=== PATIENT | female | born 1990 | race American Indian/Alaskan Native ===

== ENCOUNTER → 2021-03-15 15:46 | Outpatient (CLI) | payer OTHER, SELFPAY ==
--- NOTE | 2021-03-15 15:51 | DI.US.S_ITS ---
PROCEDURE: US OB >= 14 WEEKS FETUS INDICATIONS: 20 WEEK ANATOMY. OUTSIDE/PRIOR DATING DATA: Last menstrual period (LMP): October 24, 2020. LMP-based estimated date of delivery (JOAQUINA): July 31, 2021. First dating scan (date and location): [facility]; March 15, 2021. Estimated date of delivery (JOAQUINA) from first dating scan: July 28, 2021. TECHNIQUE: Real-time scanning was performed of the fetus, with image documentation and biometric measurements. COMPARISON: None. FINDINGS: General: A single living intrauterine gestation is present. Presentation: Variable. Placenta: Placental position is anterior , without previa. Amniotic fluid index: 15.2 cm, normal range is 5-24 cm. Single deepest vertical pocket is 4.3 cm. heart rate: 144 beats per minute. Maternal cervical canal: 4 cm long. Normal lower limit is 2.5 cm. biometrics: Biparietal diameter: 4.9 cm Head circumference: 18 cm Abdominal circumference: 15.7 cm Femur length: 3.4 cm Composite gestational age from present scan: 20 weeks, 5 days Estimated weight and percentile: 375 g +/-56 g; 72 percentile Anatomic survey: Neuro: Ventricles are non-dilated at less than 10 mm. Cisterna magna is normal at 3-11 mm. Cerebellum is normal in size and morphology. Nuchal skin fold: Normal at less than 6 mm between 14-21 weeks gestational age. Face: Nose and lips, facial profile are normal. Spine: No evidence for spina bifida. Heart: 4-chambered heart is present, with normal ventricular outflow tracts. Echogenic focus versus echogenic chordae tendinae a in the bilateral ventricles. Diaphragm: Diaphragm is intact. Stomach: Left-sided stomach is present. Kidneys: No hydronephrosis. Normal is less than 5 mm in 2nd trimester, less than 7 mm in 3rd trimester. Cord: 3-vessel cord has orthotopic insertion. Bladder: Normal in size. Extremities: All 4 extremities identified. IMPRESSION: Live single intrauterine gestation as detailed above. We strive to produce accurate, complete, and clear reports of imaging services. To assist us in improving patient care, this report was composed using standard report templates and voice recognition software. Therefore, it may contain abnormal punctuation, insertions and/or omissions. Occasional wrong-word or sound-alike substitutions may occur. Though we review the report and make efforts to correct it, we do recommend that the report be read carefully in proper context to recognize any text inaccuracies. Dictated by: Alexei Johnson M.D. on 03/15/2021 at 17:12 Approved by: Alexei Johnson M.D. on 03/15/2021 at 17:17
== END ==
PROVIDERS: Referring Provider Nurse Practitioner Obstetrics & Gynecology; Visit Provider Nurse Practitioner Obstetrics & Gynecology
DX: Z3A.20 20 weeks gestation of pregnancy; Z36.89 Encounter for other specified antenatal screening
CPT/HCPCS: 76811

== ENCOUNTER → 2021-07-09 15:01 | Outpatient (ROUT) | payer OTHER, SELFPAY | PROVIDERS: Visit Provider Nurse Practitioner Obstetrics & Gynecology | DX: Z36.85 Encounter for antenatal screening for Streptococcus B (principal); Z3A.36 36 weeks gestation of pregnancy | CPT/HCPCS: 87081; 87147; 87186 ==

== ENCOUNTER 2021-07-27 03:08 | Inpatient (IN) | payer OTHER, SELFPAY ==
--- NOTE | 2021-07-27 04:12 | PM.OBHP.1 ---
OB HPI Date/Time Date of admission: 07/27/21 Date Patient Seen: 07/27/21 Time Patient Seen: 04:12 History of Present Condition Chief complaint: WATER BROKE : 1 Para: 0 Estimated Date of Delivery: 07/31/21 Estimated Gestational Age (weeks): 39.3 Narrative: Shereen oLaiza is a 30 year old female @ 13zdn3t by LMP and 10wk US who presents for evaluation of PROM. Noticed clear leaking fluid at 0125. Mild cramping started at 0200. Uncomplicated care w/ CNM. Open to active management of PROM and an epidural for labor analgesia. Was previously counseled on GBS positive, clindamycin resistant status with allergies requiring treatment with vancomycin. Partner, Markell, is present and supportive. History of Present care: good care, initiated at week # (10), number of visits (10) and pounds weight gain (23) Dating criteria: LMP confirmed by 1st trimester US Ultrasounds: normal mid trimester US Obstetrical complications: none Medical complications: none Preadmission Labs Blood type: O (+) positive -: Antibody screen: negative, GBS status: positive, HBsAG: negative, HIV: negative and RPR/VDLR: negative -: Chlamydia screen: not detected and Gonorrhea screen: not detected -: Rubella: immune and Varicella: immune HCT: 35.7 HCAB: negative Cell-free DNA: Negative, female 1 hr GTT: 132 Evaluation Evaluation Baseline heart rate: 120 Variability: Moderate (11-25) monitor accelerations: Present Monitor Decelerations: Variable Contraction Frequency (minutes): 6 Uterine Contraction Intensity: Mild Category of Tracing: Reactive Status: Category l Non-invasive Membranes Rupture Test: positive Comments: CE deferred for PROM PFSH Medical History (Updated 07/27/21 @ 04:45 by Siobhan Pitt CNM) Anemia Surgical History (Updated 07/27/21 @ 04:45 by Siobhan Pitt CNM) H/O breast augmentation H/O oral surgery Family History (Updated 07/27/21 @ 04:48 by Siobhan Pitt CNM) Mother Depression Father Cancer Social History (Updated 07/27/21 @ 04:49 by Siobhan Pitt CNM) marital status: unmarried,living together household members: significant other lives independently: Yes caregiver/support person: No education level: master's degree occupational status: employed Meds Home Medications and Allergies Home Medications Medication Instructions Recorded Confirmed Type [id number] 1 mg 1 tab PO 07/27/21 History tablet Review of Systems Review of Systems ROS: Yes All systems reviewed with the patient and are negative except as otherwise documented OB Exam Narrative Exam Narrative: BP 120/86mmHg, HR 55bpm, T 36.4C Temporal Resp Effort & Inspection: normal respiratory effort Auscultation: clear to auscultation bilaterally Cardio Rate: regular rate Rhythm: regular rhythm Presentation: vertex Assessment and Plan Assessment and Plan Assessment and Plan narrative: A: Term [place] PROM x 3 hours without sx of infection GBS prophylaxis indicated Cat II FHR, overall reassuring P: Admit, routine orders w/ Vancomycin for GBS prophylaxis. Counseled on options for active vs. expectant management of PROM and patient elects active management. 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 Encouraged rest while she's able. Reassess in 4-6 hours or sooner, PRN.
[2021-07-27 05:04] LABS: Add Manual Diff / Slide Review NO; Basophils Absolute Auto 100 /uL (0-100); Basophils Percent Auto 0.8 % (0-2); Eosinophils Absolute Auto 100 /uL (0-450); Eosinophils Percent Auto 1.1 % (2-4); Hemoglobin 13.6 g/dL (12.0-16.0); Lymphocytes Absolute Auto 2100 /uL (1100-4500); Lymphocytes Percent Auto 22.3 % (25-40); Mean Corpuscular Hemoglobin 31.6 PG (26-34); Mean Corpuscular Volume 92.8 fL (80-100); Monocytes Absolute Auto 500 /uL (0-900); Monocytes Percent Auto 5.7 % (3-14); Neutrophils Absolute Auto 6500 /uL (1500-7000); Neutrophils Percent Auto 70.1 % (50-75); Platelet Count 187 X10^3/uL (150-400); Red Blood Cell Count 4.31 X10^6/uL (4.0-5.2); Red Cell Distribution Width 13.7 % (11.6-14.8); White Blood Cell Count 9.3 X10^3/uL (4.5-11.0)
[2021-07-27] MEDS: VANCOMYCIN 2,000 MG/400 ML PIGGYBACK 200 MG IV (05:11)
[2021-07-27 05:18] LABS: COVID19 -Nasal RAPID Negative (Negative)
[2021-07-27 06:21] VITALS: BP 120/86
[2021-07-27] MEDS: LACTATED RINGERS 1,000 ML 100 ML IV ×3 (08:38→14:25)
[2021-07-27] MEDS: OXYTOCIN PREMIX 30 UNIT/500 ML PLAST..BAG IV (08:40)
[2021-07-27] MEDS: FENT 2MCG/ML BUPIV 0.125% EPI 200 MCG/100 ML PLAST..BAG 8 MCG EPIDURAL ×2 (11:22→19:17)
--- NOTE | 2021-07-27 12:23 | P.PN_ITS ---
Subjective Subjective Interval history: Date/Time Date Patient Seen: 07/27/21 Time Patient Seen: 12:09 Pain Control Pain control: epidural Comments: Began breathing through contractions around 0900.? Requested epidural at 1040.? now resting comfortably with epidural.? Central Office Operator and partner are present and supportive.? VS: BP 111/65mmHg, HR 58bpm, T 36.4C Temporal.? BP dia of 97/55 reached shortly after epidural placement, improved w/ position change, additional IVFB.? Pelvic Exam Dilation (cm): 3 Effacement (%): 90 station: -1 Amniotic membrane status: Leaking (clear) Contractions Contractions on admission: irregular Monitor mode: External Pitocin rate (mU/min): 0 Contraction frequency (min): 3 Contraction duration (min): 1 Contraction pattern: Regular Status status: Category ll Heart Rate Baseline: 130 Monitor Accelerations: Present Monitor Decelerations: Late Monitor Variability: Moderate Comments: 25 minutes after epidural was placed, 3 coupled contractions and decrease in maternal BP led to recurrent late decelerations.? Pitocin was turned off, maternal position changed and additional IVFB was given and FHR recovered.? FHR now Cat I.? Assessment and Plan Assessment: induction ongoing Plan: continuous present management Comments: Reassess in 4 hours or sooner, PRN.? Exam Vital Signs (past 8 hours): - 07/27/21 06:21 Blood Pressure 120/86 Objective Labs Result Diagrams: 07/27/21 05:00 Labs: Laboratory Results - last 24 hr 07/27/21 07/27/21 07/27/21 05:00 05:00 05:00 WBC 9.3 RBC 4.31 Hgb 13.6 Hct 40.0 MCV 92.8 MCH 31.6 MCHC 34.0 RDW 13.7 Plt Count 187 Neut % (Auto) 70.1 Lymph % (Auto) 22.3 L [place] % (Auto) 5.7 Eos % (Auto) 1.1 L Baso % (Auto) 0.8 Neut # (Auto) 6500 Lymph # (Auto) 2100 [place] # (Auto) 500 Eos # (Auto) 100 Baso # (Auto) 100 SARS-CoV-2 (PCR) Negative Blood Type O Positive Antibody Screen Negative [facility] Medical History (Updated 07/27/21 @ 04:45 by Siobhan Pitt CNM) Anemia Surgical History (Updated 07/27/21 @ 04:45 by Siobhan Pitt CNM) H/O breast augmentation H/O oral surgery Family History (Updated 07/27/21 @ 04:48 by Siobhan Pitt CNM) Mother Depression Father Cancer Social History (Updated 07/27/21 @ 04:49 by Siobhan Pitt CNM) marital status: unmarried,living together household members: significant other lives independently: Yes caregiver/support person: No education level: master's degree occupational status: employed Smoking Status: Never smoker Assessment & Plan Time Spent With Patient Critical Care time: I spent a total of [] minutes of critical care time on this patient's care today; this time is exclusive of procedural time.
--- NOTE | 2021-07-27 15:55 | PM.OBPNLAB ---
Date/Time Date Patient Seen: 07/27/21 Time Patient Seen: 14:45 Pain Control Pain control: epidural Comments: Called by RN for recurrent late decelerations at 1403. RN initiated position changes and turned off pit for decels. FHR variability remained moderate with accelerations. Patient remains comfortable with epidural anesthesia. VS: BP 109/56mmhg, HR 52bpm, T 36.3C Temporal Pelvic Exam Dilation (cm): 3.5 Effacement (%): 90 station: -1 Amniotic membrane status: Leaking (clear) Comments: exam by RN, unchanged Contractions Monitor mode: External Pitocin rate (mU/min): 0 Contraction frequency (min): 4 Contraction duration (min): 2 Contraction pattern: Irregular Status status: Category ll Heart Rate Baseline: 130 Monitor Accelerations: Present Monitor Decelerations: Late and Variable Monitor Variability: Moderate Assessment and Plan Comments: Counseled on patient on recurrent deceleration. Decelerations resolved with supine positioning, during this conversation. Discussed possibility of amnioinfusion if decels return. Will continue to encourage frequent position changes and reassess in 2 hours or sooner, PRN.
[2021-07-27 15:58] LABS: Estimated Glomerular Filt Rate > 60.0 mL/min (>60)
[2021-07-27] MEDS: VANCOMYCIN 1,000 MG/200 ML PIGGYBACK 200 MG IV (17:42)
--- NOTE | 2021-07-27 18:06 | PM.OBPNLAB ---
Date/Time Date Patient Seen: 07/27/21 Time Patient Seen: 17:45 Pain Control Pain control: epidural Comments: Using PCEA with moderate pain relief. VS: BP 128/71, P 54bpm, T 36.4C Pelvic Exam Dilation (cm): 6 Effacement (%): 90 station: -1 Amniotic membrane status: Leaking (clear) Contractions Monitor mode: External Pitocin rate (mU/min): 0 Contraction frequency (min): 3 Contraction duration (min): 2 Contraction pattern: Regular Contraction intensity: Strong/Firm Status status: Category ll Heart Rate Baseline: 130 Monitor Accelerations: Present Monitor Decelerations: Early, Late and Variable Monitor Variability: Moderate Comments: overall reassuring Assessment and Plan Assessment: active labor Plan: continuous present management Comments: Reassurance given of good progress without pitocin x several hours. Reassess in 4 hours or sooner, PRN.
--- NOTE | 2021-07-27 22:09 | PM.OBPRVD ---
Events: Labor Augmentation and Premature Rupture Membrane Labor & Delivery Delivery date: 07/27/21 Intrapartal Events: Deceleration Cervical ripening method: none Induction method: none Delivery augmentation: pitocin Delivery monitor: external FHT and external uterine Route of delivery: Episiotomy description: None L&D Laceration Description: Labial (bilateral splits) Delivery repair: chromic (4.0) Estimated blood loss (mL): 50 Anesthesia Type: Epidural Narrative: Shereen labored well with adequate epidural anesthesia. Was checked with report of increasing rectal pressure and found to be C/C/+1. Minimal coaching and strong maternal efforts led to NSVB of a vigorous baby girl in JORDON position. there was no nuchal cord and the shoulders delivered easily. [place] was placed on maternal abdomen for drying and skin to skin. Remaining 30 units of pitocin in 500mL LR was started at 250mL/hr for AMTSL. After cessation of pulsation the cord was double clamped by CNM and cut by FOB. Cord blood sample was collected. Gentle cord traction and single maternal push led to spontaneous, Schultze delivery of an apparently intact placenta, membranes and 3VC. Fundus immediately firm and bleeding minimal. inspection revealed bilateral, upper, labial splits repaired with 4.0 chromic in the usual fashion under epidural anesthesia. QBL 50mL. Both mother and baby stable, skin to skin and breast feeding as I left the room. [place] Baby 1: gender: Female Presentation: vertex Position: Right Occiput Anterior Placenta delivery description: Spontaneous Cord Vessel Description: 3 Vessels score (1 min): 9 score (5 min): 9 weight: 3.384 kg Plan for aftercare: Routine care
[2021-07-27] MEDS: ACETAMINOPHEN 325 MG TABLET 650 MG PO (22:40)
[2021-07-27] MEDS: KETOROLAC 30 MG/ML VIAL IV (22:40)
[2021-07-28] MEDS: IBUPROFEN 600 MG TABLET PO (04:34)
[2021-07-28] MEDS: ACETAMINOPHEN 325 MG TABLET 650 MG PO (04:34)
[2021-07-28] MEDS: LANOLIN OINT 7 GM 1 APPLIC TOP (08:50)
[2021-07-28] MEDS: DERMOPLAST SPRAY 20% 60 ML 1 SPRAY TOP (08:51)
--- NOTE | 2021-07-28 17:35 | PM.OBDS.1 ---
Discharge Providers Provider Date of admission: 07/27/21 03:08 Discharge Date: 07/28/21 Consults: 07/27/21 04:10 Consult to Anesthesiology Urgent Comment: Consulting Provider: Anesthesiologist Reason for consultation: if requested Has provider been notified: No 07/28/21 22:08 Consult to [employer] Machine Routine Comment: Discharge provider: Siobhan Pitt CNM Summary Hospital Course Date Patient Seen: 07/28/21 Time Patient Seen: 17:35 Diagnoses: O70.0 Hospital Course: PPD1 s/p NSVB w/ bilateral labial splits repaired. Voiding, ambulating and independently. Vaginal bleeding is light, without clots. Tolerating a general diet. Pain is minimal and well controlled w/ PO medication. Eager for discharge to home. Partner, Markell, is present and supportive. Peripartum Data Delivery Method: Natural Vaginal Laceration Description: Labial Episiotomy description: None Procedures: o70.0 complications: none [place] 1: Gender: Female Disposition of : home Discharge Diagnosis (1) First degree perineal laceration during delivery: Status: Acute Status at Discharge Cognitive/behavioral status at discharge: oriented Functional status at discharge: independent ambulation Overall status at discharge: patient is back to baseline Time Spent with Patient Time attestation: Total time spent providing and/or coordinating discharge services: Time spent: Greater than 30 minutes Specific discharge activities: Routine PP orders and precautions Objective Labs Result Diagrams: 07/27/21 05:00 07/27/21 15:35 Exam Vital Signs (past 8 hours): BP 127/69mmHg, HR 59bpm, RR 17/min, T 97.8F Temporal, SP02 98% Other: Fundus firm @ U-2, lochia small, no clots. Perineum intact. Discharge Plan Discharge Plan Patient Disposition: Home Discharge orders & Medications Prescriptions: New ibuprofen 600 mg Tablet 600 mg PO Q6HR PRN (Reason: Pain, Mild (1-3)) 14 Days Qty: 60 0RF Continued 1 mg Tablet 1 tab PO 0RF Follow up/Referrals: Siobhan Pitt CNM [[employer] Representative] - (Follow-up by Telehealth 08/09/21 @ 2:45pm Follow-up in office 09/08/21 @ 4pm) Diet/Activity/Treatments Diet: Diet as Tolerated and Regular Activity: pelvic rest x 6 weeks Skin/Wound/Dressing Care Report to your healthcare provider any signs of infection, such as:: chills, fever, increased pain, unusual drainage and unusual redness Visit Report/Discharge Packet Instructions: Depression
[2021-07-28 18:48] VITALS: BP 127/69; PULSE 59; RESP 17; TEMP 36.6
== END 2021-07-28 20:25 | disposition home or self-care (01) | DRG 807 ==
PROVIDERS: Admitting Provider Nurse Practitioner Obstetrics & Gynecology; Referring Provider Nurse Practitioner Obstetrics & Gynecology; Visit Provider Nurse Practitioner Obstetrics & Gynecology
DX: O42.02 Full-term premature rupture of membranes, onset of labor within 24 hours of rupture (principal); Z37.0 Single live birth; Z3A.39 39 weeks gestation of pregnancy; O99.824 Streptococcus B carrier state complicating childbirth; O76 Abnormality in fetal heart rate and rhythm complicating labor and delivery; O70.0 First degree perineal laceration during delivery; Z20.822 Contact with and (suspected) exposure to COVID-19
CPT/HCPCS: 01967; 36415; 59025; 59050; 82565; 84112; 85025; 86850; 86900; 86901; 87635; C9803; G0379; J1885; J2590

== ENCOUNTER → 2023-12-29 15:15 | Outpatient (CLI) | payer OTHER, SELFPAY | PROVIDERS: PCP Nurse Practitioner; Visit Provider Obstetrics & Gynecology | DX: Z34.80 Encounter for supervision of other normal pregnancy, unspecified trimester (principal) | CPT/HCPCS: 87086 ==

== ENCOUNTER → 2023-12-29 15:39 | Outpatient (CLI) | payer OTHER, SELFPAY ==
[2023-12-29 17:24] LABS: Add Manual Diff / Slide Review NO; Basophils Absolute Auto 0 /uL (0-100); Basophils Percent Auto 0.3 % (0-2); Eosinophils Absolute Auto 100 /uL (0-450); Eosinophils Percent Auto 1.2 % (2-4); Hematocrit 35.1 % (36-46); Hemoglobin 11.9 g/dL (12.0-16.0); Lymphocytes Absolute Auto 2500 /uL (1100-4500); Mean Corpuscular HGB Conc 33.8 % (30-36); Mean Corpuscular Hemoglobin 31.5 PG (26-34); Monocytes Absolute Auto 600 /uL (0-900); Monocytes Percent Auto 6.2 % (3-14); Neutrophils Absolute Auto 6600 /uL (1500-7000); Neutrophils Percent Auto 67.3 % (50-75); Platelet Count 271 X10^3/uL (150-400); Red Blood Cell Count 3.77 X10^6/uL (4.0-5.2); Red Cell Distribution Width 13.8 % (11.6-14.8); White Blood Cell Count 9.9 X10^3/uL (4.5-11.0)
[2023-12-29 18:36] LABS: HCG Quantitative /Beta subunit 137820 mIU/mL
[2023-12-30 06:12] LABS: RPR Screen Non Reactive (Non Reactive)
[2023-12-30 07:36] LABS: Varicella IgG Antibody 585 index (Immune >165)
[2024-01-01 19:03] LABS: HIV 1 & 2 Ab/Ag 4th Gen Combo NEGATIVE (NEGATIVE); Hep C Virus Ab w/Reflex Quant NEGATIVE s/c (NEGATIVE); Hepatitis B Surface Antigen NEGATIVE s/c (NEGATIVE); Rubella Antibody IgG 9.1 IU/mL (>15)
== END ==
PROVIDERS: PCP Nurse Practitioner; Referring Provider Obstetrics & Gynecology; Visit Provider Obstetrics & Gynecology
DX: Z34.03 Encounter for supervision of normal first pregnancy, third trimester (principal); Z3A.08 8 weeks gestation of pregnancy
CPT/HCPCS: 36415; 80055; 84702; 86787; 86803; 86850; 86900; 86901; 87086; 87389

== ENCOUNTER → 2024-01-01 13:23 | Outpatient (CLI) | payer OTHER, SELFPAY ==
--- NOTE | 2024-01-01 13:24 | DI.US.S_ITS ---
PROCEDURE: US OB <= 14 WEEKS FETUS INDICATIONS: rule out partial/complete molar OUTSIDE/PRIOR DATING DATA: Last menstrual period (LMP): 11/01/2023. LMP-based estimated date of delivery (JOAQUINA): 08/07/2024. First dating scan (date and location): 12/29/2023. Estimated date of delivery (JOAQUINA) from first dating scan: 08/12/2024. The calculations are made using the clinical JOAQUINA of 08/08/2023.. TECHNIQUE: Real-time scanning was performed of the fetus and maternal pelvic organs, with image documentation. Endovaginal scanning was also performed to better visualize the fetus and maternal ovaries. COMPARISON: [facility], US, OB <= 14 WEEKS FETUS, 12/29/2023, 15:30. FINDINGS: There is an intrauterine gestational sac present, contain N embryo. Additionally, there is a circular structure within the intrauterine gestational sac measuring 2.4 x 2.1 x 1.2 centimeters, previously 1.8 x 1.6 centimeter. Embryo: Present, measuring 1.6 centimeters, 8 weeks 0 days Heart rate: Present, measuring 155 beats per minute. Maternal organs: Left-sided corpus luteum. IMPRESSION: Circular structure with an intrauterine gestational sac measuring 2.4 x 2.1 x 1.2 centimeters, previously 1.8 x 1.6 centimeters. Findings are highly irregular and may represent a coexistent molar . Consider MFM referral. We strive to produce accurate, complete, and clear reports of imaging services. To assist us in improving patient care, this report was composed using standard report templates and voice recognition software. Therefore, it may contain abnormal punctuation, insertions and/or omissions. Occasional wrong-word or sound-alike substitutions may occur. Though we review the report and make efforts to correct it, we do recommend that the report be read carefully in proper context to recognize any text inaccuracies. Dictated by: Erich Lockett M.D. on 01/01/2024 at 14:31 Approved by: Erich Lockett M.D. on 01/01/2024 at 14:37
[2024-01-01 16:19] LABS: HCG Quantitative /Beta subunit 161550 mIU/mL
== END ==
PROVIDERS: PCP Nurse Practitioner; Referring Provider Obstetrics & Gynecology; Visit Provider Obstetrics & Gynecology
DX: O08.89 Other complications following an ectopic and molar pregnancy (principal)
CPT/HCPCS: 36415; 76801; 76817; 84702

== ENCOUNTER → 2024-01-06 09:59 | Outpatient (CLI) | payer OTHER, SELFPAY ==
[2024-01-06 12:31] LABS: Free T4, Direct Thyroxine 0.99 ng/dL (0.78-2.19)
[2024-01-06 12:41] LABS: HCG Quantitative /Beta subunit 160520 mIU/mL
[2024-01-06 12:45] LABS: Thyroid Stimulating Hormone 0.465 uIU/mL (0.47-4.68)
== END ==
PROVIDERS: PCP Nurse Practitioner; Referring Provider Obstetrics & Gynecology; Visit Provider Obstetrics & Gynecology
DX: O02.0 Blighted ovum and nonhydatidiform mole (principal)
CPT/HCPCS: 36415; 84439; 84443; 84702

== ENCOUNTER → 2024-01-15 10:00 | Outpatient (CLI) | payer OTHER, SELFPAY ==
[2024-01-15 11:31] LABS: Natera Collection Specimen Collected
[2024-01-15 12:09] LABS: HCG Quantitative /Beta subunit 76653 mIU/mL
== END ==
PROVIDERS: PCP Nurse Practitioner; Referring Provider Obstetrics & Gynecology; Visit Provider Obstetrics & Gynecology
DX: O02.0 Blighted ovum and nonhydatidiform mole (principal); Z3A.10 10 weeks gestation of pregnancy
CPT/HCPCS: 36415; 84702

== ENCOUNTER → 2024-03-01 15:05 | Outpatient (CLI) | payer OTHER, SELFPAY ==
[2024-03-04 10:17] LABS: Candida species Negative (Negative); Gardnerella vaginalis Negative (Negative); Trichomoas vaginalis Negative (Negative)
== END ==
PROVIDERS: PCP Nurse Practitioner; Visit Provider Obstetrics & Gynecology
DX: N89.8 Other specified noninflammatory disorders of vagina (principal)
CPT/HCPCS: 87480; 87510; 87660

== ENCOUNTER → 2024-03-01 15:17 | Outpatient (CLI) | payer OTHER, SELFPAY ==
[2024-03-01 15:48] LABS: Add Manual Diff / Slide Review NO; Basophils Absolute Auto 0 /uL (0-100); Basophils Percent Auto 0.3 % (0-2); Eosinophils Absolute Auto 100 /uL (0-450); Eosinophils Percent Auto 0.8 % (2-4); Hematocrit 36.2 % (36-46); Hemoglobin 12.1 g/dL (12.0-16.0); Lymphocytes Absolute Auto 2600 /uL (1100-4500); Lymphocytes Percent Auto 21.3 % (25-40); Mean Corpuscular HGB Conc 33.3 % (30-36); Mean Corpuscular Hemoglobin 31.2 PG (26-34); Mean Corpuscular Volume 93.6 fL (80-100); Monocytes Absolute Auto 600 /uL (0-900); Monocytes Percent Auto 5.3 % (3-14); Neutrophils Absolute Auto 8600 /uL (1500-7000); Neutrophils Percent Auto 72.3 % (50-75); Platelet Count 280 X10^3/uL (150-400); Red Blood Cell Count 3.87 X10^6/uL (4.0-5.2); Red Cell Distribution Width 13.6 % (11.6-14.8)
[2024-03-05 20:39] LABS: AFP Value 33.9 ng/mL (.); Gest Age on Col Date 17.3 weeks (.); Insulin Dep Diabetes No (.); OSBR Risk 1IN 10000 (.); Results Report (.); Test Results *Screen Negative* (.)
== END ==
PROVIDERS: PCP Nurse Practitioner; Referring Provider Obstetrics & Gynecology; Visit Provider Obstetrics & Gynecology
DX: O26.892 Other specified pregnancy related conditions, second trimester (principal); L29.89 Other pruritus; N89.8 Other specified noninflammatory disorders of vagina; Z3A.17 17 weeks gestation of pregnancy; Z13.0 Encounter for screening for diseases of the blood and blood-forming organs and certain disorders involving the immune mechanism
CPT/HCPCS: 36415; 82105; 85025; 87480; 87510; 87660

== ENCOUNTER → 2024-05-02 08:29 | Outpatient (CLI) | payer OTHER, SELFPAY ==
[2024-05-03 12:10] LABS: Candida species Negative (Negative); Gardnerella vaginalis Negative (Negative); Trichomoas vaginalis Negative (Negative)
== END ==
PROVIDERS: PCP Nurse Practitioner; Visit Provider Specialist
DX: N89.8 Other specified noninflammatory disorders of vagina (principal)
CPT/HCPCS: 87480; 87510; 87660

== ENCOUNTER → 2024-05-02 08:41 | Outpatient (CLI) | payer OTHER, SELFPAY ==
[2024-05-02 10:14] LABS: Hematocrit 34.8 % (36-46); Hemoglobin 11.9 g/dL (12.0-16.0)
[2024-05-02 10:30] LABS: GTT (PREG) 1 Hour PP 50gm Dose 109 mg/dL (76-139)
== END ==
PROVIDERS: PCP Nurse Practitioner; Referring Provider Obstetrics & Gynecology; Visit Provider Obstetrics & Gynecology
DX: Z34.82 Encounter for supervision of other normal pregnancy, second trimester (principal); Z3A.26 26 weeks gestation of pregnancy
CPT/HCPCS: 36415; 82950; 85014; 85018; 87480; 87510; 87660

== ENCOUNTER → 2024-07-10 10:30 | Outpatient (CLI) | payer OTHER, SELFPAY ==
[2024-07-11 10:58] LABS: Strep Grp B PCR POS for Grp B Strep
== END ==
PROVIDERS: PCP Nurse Practitioner; Visit Provider Obstetrics & Gynecology
DX: Z34.93 Encounter for supervision of normal pregnancy, unspecified, third trimester (principal); Z3A.36 36 weeks gestation of pregnancy
CPT/HCPCS: 87081; 87147; 87653